=== PATIENT | female | born 1960 | race African-American/Black ===

== ENCOUNTER 2018-03-28 22:13 | Emergency (ER) | payer OTHER ==
[~2018-03-28] VITALS: Ht 154.9 cm; Wt 108.9 kg
--- OUTSIDE RECORDS SUMMARY | 2018-03-28 22:16 | XMS REPORT ---
Author Author [facility] Address Unknown Phone Unavailable Care Team Providers Care Reconciling Clerk Name Role Phone SENAITLUDMILA Gomez Unavailable Unavailable Problems This patient has no known problems. Allergies, Adverse Reactions, Alerts This patient has no known allergies or adverse reactions. Medications This patient has no known medications. Results Test Description Test Time Test Comments Text Results Atomic Results Result Comments CBC W/PLT COUNT & AUTO DIFFERENTIAL 2016-12-11 17:55:00 WHITE BLOOD CELL COUNT (BEAKER) (test sqcf=410) 7.9 K/ L 4.0-10.0 RED BLOOD CELL COUNT (BEAKER) (test qmjb=273) 5.17 M/ L 4.00-5.00 HEMOGLOBIN (BEAKER) (test fxot=872) 11.3 GM/DL 12.0-15.0 HEMATOCRIT (BEAKER) (test hztn=544) 37.1 % 36.0-45.0 MEAN CORPUSCULAR VOLUME (BEAKER) (test fvnl=215) 71.6 fL 82.0-99.0 MEAN CORPUSCULAR HEMOGLOBIN (BEAKER) (test tnxv=718) 21.8 pg 27.0-33.0 MEAN CORPUSCULAR HEMOGLOBIN CONC (BEAKER) (test hhce=510) 30.5 GM/DL 32.0-36.0 RED CELL DISTRIBUTION WIDTH (BEAKER) (test yplh=750) 15.3 % 10.3-14.2 PLATELET COUNT (BEAKER) (test sgwv=607) 255 K/CU MM 150-430 MEAN PLATELET VOLUME (BEAKER) (test vnby=287) 8.8 fL 6.5-10.5 (MANUAL DIFFERENTIAL)2016-12-11 17:55:00* Test Item Value Reference Range Comments NEUTROPHILS - REL (DIFF) (BEAKER) (test somn=4858) 43 % LYMPHOCYTES - REL (DIFF) (BEAKER) (test iprx=8629) 53 % MONOCYTES - REL (DIFF) (BEAKER) (test eeot=9970) 3 % EOSINOPHILS - REL (DIFF) (BEAKER) (test lmbw=6329) 1 % NEUTROPHILS - ABS (DIFF) (BEAKER) (test mrdj=4709) 3.40 K/ L 1.80-8.00 LYMPHOCYTES - ABS (DIFF) (BEAKER) (test uvmf=7014) 4.19 K/ L 1.48-4.50 MONOCYTES - ABS (DIFF) (BEAKER) (test hjci=6741) 0.24 K/ L 0.00-1.30 EOSINOPHILS - ABS (DIFF) (BEAKER) (test kkpp=0837) 0.08 K/ L 0.00-0.50 TOTAL COUNTED (BEAKER) (test tvyw=9724) 100 WBC MORPHOLOGY (BEAKER) (test tuft=598) Normal GIANT PLATELETS (BEAKER) (test irla=982) Present HYPOCHROMIA (BEAKER) (test yyog=716) 3+ many MICROCYTES (BEAKER) (test nrlc=226) 1+ few BASIC METABOLIC [id number] 17:42:00* Test Item Value Reference Range Comments SODIUM (BEAKER) (test agqw=286) 132 meq/L 135-148 POTASSIUM (BEAKER) (test yaga=272) 4.1 meq/L 3.6-5.5 CHLORIDE (BEAKER) (test zcye=759) 102 meq/L 98-106 CO2 (BEAKER) (test bbab=019) 21 meq/L 20-29 BLOOD UREA NITROGEN (BEAKER) (test hlsz=146) 20 mg/dL 10-26 CREATININE (BEAKER) (test kmzz=147) 1.10 mg/dL 0.50-1.20 GLUCOSE RANDOM (BEAKER) (test aijx=649) 190 mg/dL 70-110 CALCIUM (BEAKER) (test cpjs=315) 10.1 mg/dL 8.5-10.5 EGFR (BEAKER) (test mkfh=5189) 62 mL/min/1.73 sq m ESTIMATED GFR IS NOT ACCURATE CREATININE CLEARANCE IN PREDICTING GLOMERULAR FILTRATION RATE. ESTIMATED GFR IS NOT APPLICABLE FOR DIALYSIS PATIENTS.
--- OUTSIDE RECORDS SUMMARY | 2018-03-28 22:16 | XMS REPORT | Clinical Summary ---
Author Author [facility] Address Unknown Phone Unavailable Care Team Providers Care Roller Turner Name Role Phone Sharpless PCP Allergies Comments Active Allergy Reactions Severity Noted Date "upset stomach" Ibuprofen 12/10/2016 Medications End Date Status Medication Sig Dispensed Refills Start Date Active jwCIMUJixc-isphflssj-wgub Take by mouth 0 iazid 10-160-12.5 mg Tab daily. 12/17/2017 aspirin 81 MG EC tablet Take 1 tablet 0 (81 mg total) 7 by mouth daily. Active Problems Not on file Social History Date Tobacco Use Types Packs/Day Years Used Never Smoker Alcohol Use Drinks/Week oz/Week Comments No Sex Assigned at Date Recorded Not on file Industry Job Start Date Occupation Not on file Not on file Not on file Travel End Travel History Travel Start No recent travel history available. Last Filed Vital Signs Not on file Plan of Treatment Not on file Implants Device Identifier Shelf Expiration Date Model / Serial / Lot Implanted Type Area Manufactur er 07/31/2020 AR-7237-7 / [id number] / [id number] Fbrtape 2mm Ar-7237-7 - [id number] [place]/[employer] Right: Leg [employer] Implanted: Qty: 4 on 12/17/2016 by Rubens Lambert Results Not on fileafter 03/27/2017 Insurance Payer Benefit Subscriber ID Type Phone Address Plan / Group AETNA - [place] AETNA HMO xxxxxxxxxx HMO/POS POS QPOS
[2018-03-28] MEDS ORDERED: MORPHINE SULFATE 2 MG/ML SYR IV STA (23:03)
[2018-03-28] MEDS ORDERED: SODIUM CHLORIDE 0.9% 1000ML 1,000 ML IV STA (23:03)
[2018-03-28] MEDS ORDERED: ONDANSETRON HCL INJ 2 MG/ML VIAL IV STA (23:03)
[2018-03-28] MEDS ORDERED: PANTOPRAZOLE 40 MG 10ML VIAL IV STA (23:03)
[2018-03-28 23:14] LABS: BASOPHILS % 0.3 % (0.0-1.0); EOSINOPHILS % 0.3 % (0.0-6.0); LYMPHOCYTES # (AUTO) 1.3 (1.0-3.2); LYMPHOCYTES % 16.9 % (18.0-39.1); MEAN CORPUSCULAR HEMOGLOBIN 22.3 pg (28-32); MEAN CORPUSCULAR HGB CONC 30.6 g/dL (31-35); MEAN CORPUSCULAR VOLUME 72.9 fL (81-99); MONOCYTES # (AUTO) 0.5 (0.2-0.8); NEUTROPHILS % 76.1 % (38.7-80.0); PLATELET COUNT 222 x10e3/uL (140-360); RED BLOOD COUNT 4.94 x10e6/uL (3.6-5.1); RED CELL DISTRIBUTION WIDTH 14.4 % (11.7-14.4)
[2018-03-28 23:26] LABS: INR 1.01; PARTIAL THROMBOPLASTIN TIME 28.7 seconds (23.8-35.5); PROTHROMBIN TIME 14.2 seconds (11.9-14.5)
[2018-03-28 23:37] LABS: ALANINE AMINOTRANSFERASE 31 IU/L (0-55); ALBUMIN 3.9 g/dL (3.5-5.0); ALBUMIN/GLOBULIN RATIO 0.9 (0.8-2.0); ALKALINE PHOSPHATASE 87 IU/L (40-150); AMYLASE 57 U/L (25-125); ANION GAP 14.7 mmol/L (8-16); BLOOD UREA NITROGEN 12 mg/dL (7-26); BUN/CREATININE RATIO 12 (6-25); CARBON DIOXIDE 22 mmol/L (22-29); CHLORIDE 102 mmol/L (98-107); CLARITY,URINE CLOUDY (CLEAR); COLOR,URINE YELLOW (YELLOW); CREATINE KINASE 394 IU/L (29-168); CREATININE, SERUM 0.99 mg/dL (0.57-1.11); EST GLOMERULAR FILTRATION RATE > 60 ML/MIN (60-); GLUCOSE 146 mg/dL (74-118); KETONES,URINE NEGATIVE (NEGATIVE); LEUKOCYTE ESTERASE ,URINE 1+ (NEGATIVE); LIPASE 14 U/L (8-78); MAGNESIUM 1.6 MG/DL (1.3-2.1); NITRITE,URINE NEGATIVE (NEGATIVE); POTASSIUM 3.7 mmol/L (3.5-5.1); PROTEIN,URINE DIPSTICK 2+ (NEGATIVE); SODIUM 135 mmol/L (136-145); URINE UROBILINOGEN 0.2 mg/dL (0.2 - 1)
[2018-03-28 23:38] LABS: BILIRUBIN,URINE NEGATIVE (NEGATIVE)
[2018-03-28 23:48] LABS: WBC,URINE (MAN) 21-50 /HPF (0-5)
[2018-03-28 23:49] LABS: BACTERIA,URINE MANY /HPF; EPITHELIAL CELLS,URINE MODERATE /LPF; MUCUS,URINE FEW (RARE); RBC,URINE 0-5 /HPF (0-5)
--- NOTE | 2018-03-29 00:10 | Diagnostic Imaging Report ---
EXAM: CHEST SINGLE (PORTABLE), AP 1 view INDICATION: Abdominal pain, nausea and vomiting and diarrhea COMPARISON: None FINDINGS: LINES/TUBES: None LUNGS: No consolidations or edema. PLEURA: No effusions or pneumothorax. HEART AND MEDIASTINUM: Normal size and contour. BONES AND SOFT TISSUES: No acute findings. IMPRESSION: No acute thoracic abnormality. Signed by: Dr. Melissa Randle M.D. on 03/29/2018 12:07 AM
[2018-03-29] MEDS ORDERED: CEFTRIAXONE SOD 1 GM VIAL IV STA (00:24)
[2018-03-29] MEDS ORDERED: ACETAMINOPHEN 1000 MG/100 ML 100 ML IV ONE (00:47)
[2018-03-29] MEDS ORDERED: ACETAMINOPHEN 1000 MG/100 ML IV STA (00:48)
--- NOTE | 2018-03-29 01:23 | Diagnostic Imaging Report ---
EXAM: CT ABDOMEN AND PELVIS with IV CONTRAST DATE: 03/28/2018 11:03 PM Time stamp on Exam: 0038 hours INDICATION: Abdominal pain, nausea vomiting and diarrhea, right lower quadrant pain COMPARISON: None TECHNIQUE: The abdomen and pelvis were scanned using a multidetector helical scanner. Coronal and sagittal reformations were obtained. Dose modulation, iterative reconstruction, and/or weight based adjustment of the mA/kV was utilized to reduce the radiation dose to as low as reasonably achievable. Routine protocol performed. IV Contrast: 100 cc Isovue-370 Oral Contrast: Water FINDINGS: LOWER THORAX: No consolidations LIVER: No masses BILIARY: The gallbladder has been removed. No ductal dilation. SPLEEN: No masses PANCREAS: No masses ADRENALS: No nodules KIDNEYS: Symmetric perfusion. No enhancing masses. No hydronephrosis. GI TRACT: No distention, wall thickening or evidence of obstruction. Normal appendix. VESSELS: Unremarkable PERITONEUM/RETROPERITONEUM: No free air or fluid LYMPH NODES: No lymphadenopathy REPRODUCTIVE ORGANS: Enlarged and lobulated uterus with multiple fibroids including an approximately 10 cm exophytic heavily calcified fibroid arising from the left lateral fundus. No adnexal masses. BLADDER: Unremarkable SOFT TISSUES: Incompletely visualized 7 x 6 by at least 10 cm lipoma posterior to the right hip under the gluteus casey. Small fat-containing supraumbilical hernia with the hernia sac measuring approximately 6 x 5.8 x 4.3 cm with the fascial defect measuring 1.5 cm in sagittal diameter and 2.1 cm in transverse diameter. Tiny fat-containing umbilical hernia. BONES: No suspicious bone lesions. IMPRESSION: 1. No CT findings to explain patient's acute symptoms. No evidence of appendicitis. 2. Enlarged multi fibroid uterus, the largest fibroid is pedunculated and measures at least 10 cm. 3. Small fat-containing supraumbilical hernia without evidence of strangulation. Signed by: Dr. Melissa Randle M.D. on 03/29/2018 1:20 AM
[2018-03-29 01:48] VITALS: BP 124/45
[2018-03-29] MEDS ORDERED: SODIUM CHLORIDE 0.9% 50ML 50 ML ONE (02:26)
[2018-03-29] MEDS ORDERED: IOPAMIDOL 370 MG/ML 200 ML INFUS..BTL INJ ONE (02:26)
== END 2018-03-29 02:05 | disposition home or self-care (01) ==
LOC: ER 22:13
DX: R10.31 Right lower quadrant pain (principal); R11.2 Nausea with vomiting, unspecified; R19.7 Diarrhea, unspecified; N30.90 Cystitis, unspecified without hematuria; D25.9 Leiomyoma of uterus, unspecified; K43.9 Ventral hernia without obstruction or gangrene
CPT/HCPCS: 36415; 71045; 74177; 80053; 81001; 82150; 82550; 82553; 83605; 83690; 83735; 84484; 85025; 85610; 85730; 87086; 93005; 96374; 96375 ×2; 99284; J0131; J0696; J2270; J2405; J7030; Q9967

== ENCOUNTER 2018-04-14 21:43 | Emergency (ER) | payer OTHER ==
[~2018-04-14] VITALS: Ht 154.9 cm; Wt 108.9 kg
--- OUTSIDE RECORDS SUMMARY | 2018-04-14 21:46 | XMS REPORT | Clinical Summary ---
Author Author [facility] Address Unknown Phone Unavailable Care Team Providers Care Surgery Specialist Name Role Phone Sharpless PCP Allergies Comments Active Allergy Reactions Severity Noted Date "upset stomach" Ibuprofen 12/10/2016 Medications End Date Status Medication Sig Dispensed Refills Start Date Active xtIGXAUtue-hwtlnwvwz-pggs Take by mouth 0 iazid 10-160-12.5 mg [...] Manufactur er 07/31/2020 AR-7237-7 / [id number] / [id number] Fbrtape 2mm Ar-7237-7 - [id number] [place]/Art Right: Leg [employer] Implanted: Qty: 4 on 12/17/2016 by Rubens Lambert Results Not on fileafter 04/13/2017 Insurance Payer Benefit Subscriber ID Type Phone Address Plan / Group AETNA - [place] C[employer] AETNA HMO xxxxxxxxxx HMO/POS POS QPOS
[2018-04-14] MEDS ORDERED: CLONIDINE HCL 0.1 MG TAB PO ONE (22:45)
[2018-04-14 22:52] LABS: BASOPHILS % 0.2 % (0.0-1.0); EOSINOPHILS # (AUTO) 0.1 (0.0-0.4); EOSINOPHILS % 1.3 % (0.0-6.0); HEMATOCRIT 36.1 % (34.2-44.1); HEMOGLOBIN 10.8 g/dL (12.0-16.0); LYMPHOCYTES # (AUTO) 3.5 (1.0-3.2); LYMPHOCYTES % 41.1 % (18.0-39.1); MEAN CORPUSCULAR HEMOGLOBIN 22.1 pg (28-32); MEAN CORPUSCULAR HGB CONC 29.9 g/dL (31-35); MEAN CORPUSCULAR VOLUME 73.8 fL (81-99); MONOCYTES # (AUTO) 0.6 (0.2-0.8); MONOCYTES % 6.9 % (4.4-11.3); NEUTROPHILS # (AUTO) 4.2 (2.1-6.9); NEUTROPHILS % 50.3 % (38.7-80.0); PLATELET COUNT 246 x10e3/uL (140-360); RED BLOOD COUNT 4.89 x10e6/uL (3.6-5.1); RED CELL DISTRIBUTION WIDTH 14.7 % (11.7-14.4)
[2018-04-14 23:02] LABS: INR 0.96; PROTHROMBIN TIME 13.7 seconds (11.9-14.5)
[2018-04-14 23:03] LABS: PARTIAL THROMBOPLASTIN TIME 29.9 seconds (23.8-35.5)
--- NOTE | 2018-04-14 23:11 | Diagnostic Imaging Report ---
EXAMINATION: CHEST 2 VIEWS INDICATION: PITTING EDEMA TO BLE, EDEMA PAIN TO RIGHT FOOT COMPARISON: Chest x-ray 03/28/2018 FINDINGS: PA and lateral views TUBES and LINES: None. LUNGS: Lungs are well inflated. Lungs are clear. There is no evidence of pneumonia or pulmonary edema. PLEURA: No pleural effusion or pneumothorax. HEART AND MEDIASTINUM: Mild enlargement of the cardiac silhouette. BONES AND SOFT TISSUES: No acute osseous lesion. Soft tissues are unremarkable. UPPER ABDOMEN: No free air under the diaphragm. IMPRESSION: No acute thoracic abnormality. Signed by: DR. Cain Bianchi MD on 04/14/2018 11:08 PM
[2018-04-14 23:12] LABS: ALANINE AMINOTRANSFERASE 29 IU/L (0-55); ALBUMIN 3.7 g/dL (3.5-5.0); ALBUMIN/GLOBULIN RATIO 0.8 (0.8-2.0); ALKALINE PHOSPHATASE 105 IU/L (40-150); ANION GAP 14.7 mmol/L (8-16); BLOOD UREA NITROGEN 12 mg/dL (7-26); BUN/CREATININE RATIO 11 (6-25); CALCIUM 10.1 mg/dL (8.4-10.2); CARBON DIOXIDE 24 mmol/L (22-29); CHLORIDE 103 mmol/L (98-107); CREATINE KINASE 163 IU/L (29-168); CREATININE, SERUM 1.13 mg/dL (0.57-1.11); EST GLOMERULAR FILTRATION RATE 60 ML/MIN (60-); GLUCOSE 190 mg/dL (74-118); POTASSIUM 3.7 mmol/L (3.5-5.1); SODIUM 138 mmol/L (136-145)
== END 2018-04-15 02:06 | disposition home or self-care (01) ==
LOC: ER 21:43
DX: M79.89 Other specified soft tissue disorders (principal); L03.115 Cellulitis of right lower limb; R60.0 Localized edema; I10 Essential (primary) hypertension; R73.9 Hyperglycemia, unspecified; I25.10 Atherosclerotic heart disease of native coronary artery without angina pectoris; I25.2 Old myocardial infarction
CPT/HCPCS: 36415; 71046; 80053; 82550; 82553; 83735; 83880; 84484; 85025; 85610; 85730; 93005; 93971; 99284

== ENCOUNTER 2020-10-19 16:21 | Emergency (ER) | payer OTHER ==
[~2020-10-19] VITALS: Ht 154.9 cm; Wt 108.9 kg
[2020-10-19] MEDS ORDERED: KETOROLAC TROMETHAMINE 60 MG/2 ML VIAL IM ONE (17:45)
[2020-10-19] MEDS ORDERED: DIAZEPAM 5 MG TAB PO PRN (17:45)
[2020-10-19] MEDS ORDERED: LIDOPATCH1 EACH TOP (19:22)
[2020-10-19] MEDS ORDERED: METHOCARBAMOL750 MG PO (19:22)
[2020-10-20] MEDS ORDERED: LIDOCAINE 4% PATCH TP SCH (09:00)
== END 2020-10-19 20:50 | disposition home or self-care (01) ==
LOC: ER 17:55
DX: S39.012A Strain of muscle, fascia and tendon of lower back, initial encounter (principal); X50.0XXA Overexertion from strenuous movement or load, initial encounter; I10 Essential (primary) hypertension; I25.10 Atherosclerotic heart disease of native coronary artery without angina pectoris; I25.2 Old myocardial infarction
CPT/HCPCS: 72110; 99283; J1885

== ENCOUNTER 2020-12-22 21:48 | Emergency (ER) | payer OTHER ==
[~2020-12-22] VITALS: Ht 154.9 cm; Wt 108.9 kg
[~2020-12-22 21:48] MED LIST: LIDOPATCH1 EACH TOP; METHOCARBAMOL750 MG PO
[2020-12-22] MEDS ORDERED: SODIUM CHLORIDE 0.9% 1000ML 1,000 ML IV STA (22:16)
[2020-12-22] MEDS ORDERED: ONDANSETRON HCL INJ 2MG/ML 2ML 2 MG/ML VIAL IV STA (22:19)
[2020-12-22 22:34] LABS: BASOPHILS # (AUTO) 0.1 (0.0-0.1); BASOPHILS % 0.5 % (0.0-1.0); EOSINOPHILS # (AUTO) 0.1 (0.0-0.4); EOSINOPHILS % 0.5 % (0.0-6.0); HEMOGLOBIN 12.5 g/dL (12.0-16.0); LYMPHOCYTES % 32.7 % (18.0-39.1); MEAN CORPUSCULAR HEMOGLOBIN 21.7 pg (28-32); MEAN CORPUSCULAR HGB CONC 29.8 g/dL (31-35); MEAN CORPUSCULAR VOLUME 72.8 fL (81-99); MONOCYTES # (AUTO) 0.7 (0.2-0.8); MONOCYTES % 7.2 % (4.4-11.3); NEUTROPHILS # (AUTO) 5.4 (2.1-6.9); NEUTROPHILS % 58.7 % (38.7-80.0); PLATELET COUNT 267 x10e3/uL (140-360); RED BLOOD COUNT 5.77 x10e6/uL (3.6-5.1); RED CELL DISTRIBUTION WIDTH 14.4 % (11.7-14.4)
[2020-12-22 22:55] LABS: CREATINE KINASE MB 1.6 ng/mL (0-5.0)
[2020-12-22 22:56] LABS: ALBUMIN 4.2 g/dL (3.5-5.0); ALBUMIN/GLOBULIN RATIO 0.9 (0.8-2.0); ANION GAP 22.7 mmol/L (8-16); CALCIUM 10.5 mg/dL (8.4-10.2); CREATININE, SERUM 1.91 mg/dL (0.57-1.11); POTASSIUM 4.7 mmol/L (3.5-5.1)
[2020-12-22] MEDS ORDERED: INSULIN REGULAR, HUMAN 100 UNIT/1 ML IV STA (23:02)
[2020-12-23] MEDS ORDERED: METFORMIN HCL500 MG PO ×2 (00:33→00:55)
[2020-12-23 01:03] LABS: ABG HCO3 25 mmol/L (22-26); ABG PCO2 39 mmHg (35-45); ABG PH 7.42 (7.35-7.45); ABG PO2 100 mmHg (80-105)
[2020-12-23 01:04] LABS: ABG TCO2 26
[2020-12-23 01:29] VITALS: BP 114/68
== END 2020-12-23 01:30 | disposition home or self-care (01) ==
LOC: ER 22:15
DX: R42 Dizziness and giddiness (principal); R07.89 Other chest pain; R11.2 Nausea with vomiting, unspecified; R73.9 Hyperglycemia, unspecified; I10 Essential (primary) hypertension; I25.10 Atherosclerotic heart disease of native coronary artery without angina pectoris; I25.2 Old myocardial infarction
CPT/HCPCS: 36415; 36600; 80053; 82550; 82553; 82805; 82948; 83880; 84484; 85025; 93005; 99283; J2405; J7030